=== PATIENT | female | born 1985 | race Caucasian/White ===

== ENCOUNTER 2019-06-27 09:42 | Emergency (ER) | payer OTHER ==
[~2019-06-27] VITALS: Ht 165.1 cm; Wt 99.8 kg
[2019-06-27] MEDS ORDERED: PRILOSEC OTC20 MG PO (09:51)
[2019-06-27 10:50] LABS: ABSOLUTE EOSINOPHILS 0.2 thou/uL (0.0-0.7); ABSOLUTE LYMPHOCYTES 0.8 thou/uL (0.8-5.3); ABSOLUTE MONOCYTES 0.5 thou/uL (0.0-1.2); BASOPHILS 0.7 %; EOSINOPHILS 3.5 %; HEMATOCRIT 40.5 % (37.0-47.0); HEMOGLOBIN 14.3 gm/dL (12.0-15.0); LYMPHOCYTES 18.6 %; MCH 31.8 pg (26.0-34.0); MCHC 35.3 g/dL (28.0-37.0); MCV 90.1 fL (80.0-100.0); MONOCYTES 10.9 %; MPV 7.8 fl. (7.2-11.1); NUCLEATED RBCS 0 /100WBC; PLATELET COUNT* 207 thou/uL (150-400); POLYS 66.3 %; RDW-CV 12.3 % (10.5-14.5); WBC 4.6 thou/uL (4.0-11.0)
[2019-06-27 11:02] LABS: CREATININE 0.6 mg/dL (0.6-1.3); POTASSIUM 3.4 mmol/L (3.5-5.1)
[2019-06-27 11:13] LABS: TOTAL BILIRUBIN 0.5 mg/dL (<0.1-1.0); TOTAL PROTEIN 7.6 g/dL (6.4-8.2)
[2019-06-27] MEDS ORDERED: NABUMETONE 750750 M1 PO (11:59)
[2019-06-27 12:14] VITALS: BP 159/83
--- NOTE | 2019-06-27 14:16 | EKG ---
[place] [address] ELECTROCARDIOGRAM REPORT Name: MOHSEN MORALES Room: [facility]#: [id number] Admission: 06/27/19 Attend Phys: Discharge: 06/27/19 Date of : 89 Report #: [id number] THIS REPORT FOR: //name// [facility] ED Test Date: 2019-06-27 Test Time: 11:19:32 Pat Name: MOHSEN MORALES Department: Room: Gender: F [employer] Tool: : 1985 Requested By: Erika Lizama Order Number: [id number] MD: Donnie Quan Measurements Intervals [place] Rate: 71 P: 14 GA: 151 QRS: 19 QRSD: 94 T: 22 QT: 398 QTc: 433 Interpretive Statements Sinus rhythm Baseline wander in lead(s) III No previous ECG available for comparison Electronically Signed On 06-27-2019 14:16:00 [employer] by Donnie Quan [email or web address] <ELECTRONICALLY SIGNED> By: Donnie Quan MD, [facility] 06/27/19 1416 1119 1119 Donnie Quan MD, FACC /EPI
== END 2019-06-27 12:14 | disposition home or self-care (01) ==
LOC: M.ERS 09:42
PROVIDERS: Nurse Practitioner Family
DX: N64.4 Mastodynia (principal); Z98.890 Other specified postprocedural states